=== PATIENT | female | born 1965 | race Caucasian/White ===

== ENCOUNTER → 2020-08-19 | Outpatient (CLI) | payer SELFPAY | END | disposition home or self-care (01) | LOC: MA 13:47 | PROC: BH02ZZZ Plain Radiography of Bilateral Breasts (ICD-10-PCS; principal; 2020-08-19) | DX: Z12.31 Encounter for screening mammogram for malignant neoplasm of breast (principal) | CPT/HCPCS: 77067 ==

== ENCOUNTER → 2020-12-08 | Outpatient (CLI) | payer SELFPAY | END | disposition home or self-care (01) | LOC: MA 13:50 | PROC: BH01ZZZ Plain Radiography of Left Breast (ICD-10-PCS; principal; 2020-12-08) | PROC: BH41ZZZ Ultrasonography of Left Breast (ICD-10-PCS; 2020-12-08) | DX: R92.2 Inconclusive mammogram (principal) | CPT/HCPCS: 76642; 77065 ==